=== PATIENT | male | born 1955 | race Hispanic/Latino ===

== ENCOUNTER 2019-03-15 09:54 | Day surgery (SDC) | payer OTHER ==
--- NOTE | 2019-03-14 15:00 | NUR ---
NURSING CALLED PT FOR PREOP PHONE CALL AND INSTRUCTION, ASKED IF HE HAS REGISTERED ALREADY AND PT STATES NO ONE INSTRUCTED HIM TO AND STATES HE ALREADY TO PREP. INSTRUCTED PT TO COME IN AT 0930 TOMORROW SO HE CAN REGISTER PT IS CONCERNED THAT [employer] WILL START WORKING WHEN ON HIS WAY TO HOSPITAL. PT LIVES IN [place] Addendum: 03/14/19 at 1543 by HARRIETT KENDALL RN Amended: Links added.
[~2019-03-15] VITALS: Ht 172.7 cm; Wt 101.6 kg
[~2019-03-15 09:54] MED LIST: SODIUM CHLORIDE 0.9% 1000ML 1,000 ML IV ONE
[2019-03-15] MEDS ORDERED: TORS20TA4 PO (12:11)
[2019-03-15] MEDS ORDERED: PRAV40TA3 PO (12:11)
[2019-03-15] MEDS ORDERED: SACU1TAB7 PO (12:11)
[2019-03-15] MEDS ORDERED: CARV6.25 PO (12:11)
[2019-03-15] MEDS ORDERED: APIX5TAB PO (12:11)
[2019-03-15] MEDS ORDERED: GLIP5TAB11 PO (12:11)
[2019-03-15] MEDS ORDERED: FERS325 PO (12:11)
[2019-03-15] MEDS ORDERED: INSULIN SQ ×2 (12:11)
[2019-03-15] MEDS ORDERED: PROPOFOL 10 MG/ML 20ML VIAL IV ONE (12:54)
[2019-03-15 13:30] VITALS: BP 99/56
[2019-03-15 13:35] VITALS: BP 99/52
[2019-03-15 13:40] VITALS: BP 96/59
[2019-03-15 13:45] VITALS: BP 103/54
== END 2019-03-15 13:55 | disposition home or self-care (01) ==
LOC: ENDO 09:54 → DAH 09:54 → ENDO 13:55
PROVIDERS: ATTEND Internal Medicine
DX: D12.0 Benign neoplasm of cecum (principal); D12.3 Benign neoplasm of transverse colon; D12.2 Benign neoplasm of ascending colon; K55.20 Angiodysplasia of colon without hemorrhage; K57.30 Diverticulosis of large intestine without perforation or abscess without bleeding; D50.9 Iron deficiency anemia, unspecified; E11.9 Type 2 diabetes mellitus without complications; E78.00 Pure hypercholesterolemia, unspecified; I25.10 Atherosclerotic heart disease of native coronary artery without angina pectoris; F41.9 Anxiety disorder, unspecified; E78.5 Hyperlipidemia, unspecified; F32.9 Major depressive disorder, single episode, unspecified; Z95.0 Presence of cardiac pacemaker; F17.200 Nicotine dependence, unspecified, uncomplicated; Z95.1 Presence of aortocoronary bypass graft; K59.01 Slow transit constipation; I11.0 Hypertensive heart disease with heart failure; I50.23 Acute on chronic systolic (congestive) heart failure
CPT/HCPCS: 45385; 82948 ×2; 88305; A4606; J2704; J7030

== ENCOUNTER 2019-07-04 05:38 | Day surgery (SDC) | payer OTHER ==
[~2019-07-04] VITALS: Ht 172.7 cm; Wt 106.6 kg
[~2019-07-04 05:38] MED LIST changes: +APIX5TAB PO; +FERS325 PO; +GLIP5TAB11 PO; +HUM10VIA SQ; +PRAV40TA3 PO; +SACU1TAB7 PO; -SODIUM CHLORIDE 0.9% 1000ML 1,000 ML IV ONE; +TORS20TA4 PO
[2019-07-04] MEDS ORDERED: SODIUM CHLORIDE 0.9% 1000ML 1,000 ML IV ONE (06:13)
[2019-07-04 06:26] VITALS: BP 109/62
[2019-07-04] MEDS ORDERED: LUBI24CA2 PO (06:46)
[2019-07-04] MEDS ORDERED: CARV12.511 PO (06:46)
[2019-07-04] MEDS ORDERED: PROPOFOL 10 MG/ML 20ML VIAL IV ONE (08:12)
[2019-07-04] MEDS ORDERED: LIDOCAINE HCL 2% 20ML ONE (08:13)
[2019-07-04] MEDS ORDERED: EPHEDRINE SULFATE 50 MG/ML AMPULE ONE (08:28)
[2019-07-04 08:40] VITALS: BP 133/63
[2019-07-04 08:45] VITALS: BP 128/56
[2019-07-04] MEDS ORDERED: DEXTROSE 50%-WATER 25 GM/50 ML VIAL ONE (08:47)
[2019-07-04 08:50] VITALS: BP 132/68
[2019-07-04 08:55] VITALS: BP 134/64
[2019-07-04 09:00] VITALS: BP 130/74
== END 2019-07-04 09:15 | disposition home or self-care (01) ==
LOC: DAH 05:38
PROVIDERS: ATTEND Internal Medicine
DX: D50.9 Iron deficiency anemia, unspecified (principal); D12.5 Benign neoplasm of sigmoid colon; D12.4 Benign neoplasm of descending colon; D12.3 Benign neoplasm of transverse colon; D12.8 Benign neoplasm of rectum; K55.20 Angiodysplasia of colon without hemorrhage; K57.30 Diverticulosis of large intestine without perforation or abscess without bleeding; K59.01 Slow transit constipation; I11.0 Hypertensive heart disease with heart failure; E11.51 Type 2 diabetes mellitus with diabetic peripheral angiopathy without gangrene; I50.23 Acute on chronic systolic (congestive) heart failure; I25.10 Atherosclerotic heart disease of native coronary artery without angina pectoris; E78.5 Hyperlipidemia, unspecified; F41.9 Anxiety disorder, unspecified; F32.9 Major depressive disorder, single episode, unspecified; Z79.899 Other long term (current) drug therapy; Z95.1 Presence of aortocoronary bypass graft; Z95.0 Presence of cardiac pacemaker; Z79.01 Long term (current) use of anticoagulants
CPT/HCPCS: 45380; 45385; 82948 ×3; 88305; A4215; A4221; A4222; A4223; A4606; A4615; A4663; J2704; J3490 ×2; J7030; J7070